=== PATIENT | male | born 1955 | race Caucasian/White ===

== ENCOUNTER 2017-07-09 07:11 | Day surgery (SDC) | payer OTHER ==
[~2017-07-09 07:11] MED LIST: CEFAZOLIN 2 GM/50 ML (PMX) 50 ML IVPB; SOD CHLORIDE 0.9% 1,000 ML IV
[2017-07-09] MEDS ORDERED: MIDAZOLAM 1 MG/ML 2 ML INJ (08:21)
[2017-07-09] MEDS ORDERED: FENTAnyl 50 MCG/ML VIAL ×2 (08:21→09:30)
[2017-07-09] MEDS ORDERED: PROPOFOL 20 ML ×2 (08:21→09:45)
[2017-07-09] MEDS ORDERED: ROPIVACAINE 0.5 % 30 ML VIAL (08:22)
[2017-07-09] MEDS ORDERED: CEFAZOLIN 1 GM INJ (08:23)
[2017-07-09] MEDS ORDERED: CEFAZOLIN 2 GM/50 ML (PMX) 50 ML IVPB (08:30)
[2017-07-09] MEDS: BUPIVACAINE 0.25% (MPF) 30 ML INJ (09:35)
[2017-07-09] MEDS ORDERED: ONDANSETRON 4 MG INJ (09:37)
[2017-07-09] MEDS ORDERED: METOCLOPRAMIDE 10 MG INJ (09:37)
[2017-07-09] MEDS ORDERED: DEXAMETHASONE 4 MG/ML 1 ML INJ (09:37)
[2017-07-09] MEDS ORDERED: KETOROLAC 30 MG INJ (09:38)
[2017-07-09] MEDS ORDERED: SUGAMMADEX SODIUM 200 MG/2 ML VIAL IV ×2 (09:38→09:45)
[2017-07-09] MEDS ORDERED: FENTAnyl 50 MCG/ML VIAL IV ×3 (10:00)
[2017-07-09] MEDS ORDERED: OXYCODONE/ACETAMINOPHEN (5/325) TAB PO (10:00)
[2017-07-09] MEDS ORDERED: EPHEDrine SULFATE 50 MG/5 ML SYG IV (10:00)
[2017-07-09] MEDS ORDERED: METOCLOPRAMIDE 10 MG INJ IV (10:00)
[2017-07-09] MEDS ORDERED: HYDROCODONE/APAP (5/325) TAB PO (10:00)
[2017-07-09] MEDS ORDERED: DIPHENHYDRAMINE 50 MG INJ IV (10:00)
[2017-07-09] MEDS ORDERED: LABETALOL HCL 20MG INJ IV (10:00)
[2017-07-09] MEDS ORDERED: hydrALAzine 20 MG INJ IV (10:00)
[2017-07-09] MEDS ORDERED: HYDROmorphONE (0.2 MG/ML) 10ML SYG IV ×3 (10:00)
[2017-07-09] MEDS: MEPERIDINE 25 MG INJ IV (10:33)
[2017-07-09] MEDS: ONDANSETRON 4 MG INJ IV (10:33)
[2017-07-09] MEDS: POLYMYXIN/BACITRACIN 1L IRRIG (12:01)
== END 2017-07-09 11:40 | disposition home or self-care (01) ==
LOC: SDS 07:11
DX: K40.90 Unilateral inguinal hernia, without obstruction or gangrene, not specified as recurrent (principal)
CPT/HCPCS: 49505